=== PATIENT | male | born 1950 | race Caucasian/White ===

== ENCOUNTER 2018-02-26 13:14 | Emergency (ER) | payer MEDICARE, BC ==
[~2018-02-26] VITALS: Ht 188 cm; Wt 106.6 kg
[~2018-02-26 13:14] MED LIST: ALBU2.5V38 IH; ATOR10TA PO; BRIM5DRO3 EACHEYE; BRIN10DR EACHEYE; DEXL60CA3 PO; IBUP-1957 PO; LISI10TA5 PO; METH25TA5 PO; METO-295 PO; MONT10TA22 PO; TEST200V3 IM; THYR120T2 PO; TRAM50TA2 PO; TRAV5DRO EACHEYE
[2018-02-26] MEDS ORDERED: ONDANSETRON HCL/PF 4 MG/2 ML VIAL ONE ×2 (13:26→13:29)
[2018-02-26] MEDS ORDERED: HYDROMORPHONE 1 MG/1 ML DISP.SYRIN ONE ×2 (13:27→13:29)
[2018-02-26] MEDS ORDERED: ONDANSETRON HCL/PF 4 MG/2 ML VIAL IVP ONE (13:30)
[2018-02-26] MEDS ORDERED: HYDROMORPHONE INJ 2 MG/ML DISP.SYRIN IV ONE (13:30)
[2018-02-26 13:43] LABS: BASOPHILS % (AUTO) 0.2 % (0.0-2.0); HEMATOCRIT 52 % (39-51); HEMOGLOBIN 17.7 g/dL (13.5-17.5); LYMPHOCYTES # (AUTO) 1.2 /CMM (0.8-4.8); LYMPHOCYTES % (AUTO) 13.1 % (20.0-44.0); MEAN CORPUSCULAR HGB CONC 34 g/dl (31.0-36.0); MEAN CORPUSCULAR VOLUME 92 fL (80-96); MONOCYTES # (AUTO) 0.8 /CMM (0.1-1.30); MONOCYTES % (AUTO) 8.5 % (2.0-12.0); NEUTROPHILS # (AUTO) 7.3 /CMM (1.8-8.9); NEUTROPHILS % (AUTO) 78.2 % (43.0-81.0); RED BLOOD CELL COUNT(AUTO) 5.63 MIL/uL (4.5-6.0); WHITE BLOOD COUNT (AUTO) 9.3 K/uL (4.3-11.0)
--- NOTE | 2018-02-26 14:00 | NUR ---
R SIDE PAIN "FEELS LIKE MY LUNG IS COLLAPSING", SOB, ORTHOPNEIC. PT BED 6, AOX4, VSS. SKIN WARM, DRY, INTACT. C/O SHARP PAIN IN "RIGHT LUNG"ON INSPIRATION, 01/06. PT STATED RECENT PACEMAKER INSERTION 2 WEEKS AGO. SEEN BY DR MCCLENDON. FAMILY MEMBER AT BEDSIDE. WAITING FOR ORDERS. WILL CONT TO MONITOR.
[2018-02-26 14:01] LABS: CARBON DIOXIDE 19 mmol/L (21-32); CHLORIDE 101 mmol/L (98-107); CREATININE 1.2 mg/dL (0.6-1.3); GLUCOSE 111 mg/dL (74-106); POTASSIUM 4.5 mmol/L (3.5-5.1); SODIUM SERUM 134 mmol/L (136-145); UREA NITROGEN, BLOOD 31 mg/dL (7-18)
[2018-02-26] MEDS ORDERED: CYAN-6 IM (14:15)
[2018-02-26] MEDS ORDERED: ALBU18HF2 IH (14:15)
[2018-02-26 14:23] LABS: ALANINE AMINOTRANSFERASE 26 U/L (12-78); ALBUMIN 3.4 g/dL (3.4-5.0); ALKALINE PHOSPHATASE 76 U/L (46-116); ASPARTATE AMINOTRANSFERASE 17 U/L (15-37); B-TYPE NATRIURETIC PEPTIDE 73 PG/ML (0-125); BILIRUBIN,DIRECT 0.1 mg/dL (0.0-0.2); BILIRUBIN,TOTAL 0.6 mg/dL (0.2-1.0); TOTAL PROTEIN, SERUM 7.6 g/dL (6.4-8.2)
[2018-02-26 14:53] LABS: LYMPHOCYTES % (MANUAL) 11 % (16-48); MONOCYTES % (MANUAL) 8 % (0-11.0); NEUTROPHILS % (MANUAL) 81 (42-76)
[2018-02-26] MEDS ORDERED: IOHEXOL-300 100 ML VIAL IV ONE (14:55)
[2018-02-26] MEDS ORDERED: CT SWABBABLE VALVE TRANS SET 1 EA INFUS.SET MC ONE (14:55)
[2018-02-26] MEDS ORDERED: IV NS 0.9% 250 ML IV ONE (14:56)
--- NOTE | 2018-02-26 14:57 | NUR ---
PT LEFT FOR CT BY WHEELCHAIR.
[2018-02-26] MEDS ORDERED: IPRATROPIUM NEB FS 0.5 MG/2.5 ML AMPUL.NEB NEB ONE (15:00)
[2018-02-26] MEDS ORDERED: ALBUTEROL FS 2.5 MG/3 ML VIAL.NEB NEB ONE (15:00)
[2018-02-26] MEDS ORDERED: HYDROMORPHONE INJ 2 MG/ML DISP.SYRIN ONE (15:08)
--- NOTE | 2018-02-26 15:09 | NUR ---
PT BROUGHT BACK FROM CT DUE TO EXCESSIVE PAIN. PT TO RECEIVE PAIN MED AND RETURN TO CT.
[2018-02-26 15:12] LABS: D-DIMER 3.08 mg/L(FEU (0.17-0.50)
[2018-02-26] MEDS: HYDROMORPHONE INJ 2 MG/ML DISP.SYRIN IV ONE (15:13)
[2018-02-26] MEDS ORDERED: ALBUTEROL FS 2.5 MG/3 ML VIAL.NEB ONE (15:18)
[2018-02-26] MEDS ORDERED: IPRATROPIUM NEB FS 0.5 MG/2.5 ML AMPUL.NEB ONE (15:19)
--- NOTE | 2018-02-26 15:56 | NUR ---
BREATHING TX COMPLETE. PLACED BACK ON 2L O2, DUE TO O2 SAT OF 91%. STATES PAIN LEVEL HAS DECREASED TO 7/10.
--- NOTE | 2018-02-26 16:11 | NUR ---
PT TAKEN TO CT ON O2 BY WC
[2018-02-26] MEDS ORDERED: LEVOFLOXACIN (500MG) 500 MG TABLET ONE (17:26)
[2018-02-26] MEDS ORDERED: LEVOFLOXACIN (500MG) 500 MG TABLET PO ONE (17:30)
[2018-02-26 17:47] VITALS: BP 119/65
== END 2018-02-26 17:48 | disposition home or self-care (01) ==
LOC: ER 13:16
DX: J18.9 Pneumonia, unspecified organism (principal); I10 Essential (primary) hypertension; E78.5 Hyperlipidemia, unspecified; K21.9 Gastro-esophageal reflux disease without esophagitis; I45.10 Unspecified right bundle-branch block; Z95.0 Presence of cardiac pacemaker; Z88.5 Allergy status to narcotic agent; Z88.6 Allergy status to analgesic agent; Z88.8 Allergy status to other drugs, medicaments and biological substances
CPT/HCPCS: 36415; 71045-TC; 71260-TC; 80048-TC; 80076-TC; 83880; 84484-TC; 85025-TC; 85378-TC; 85730-TC; A4606; J1170; J2405; J7050; Q9967; Z7610

== ENCOUNTER 2020-09-16 14:50 | Emergency (ER) | payer BC, MEDICARE ==
[~2020-09-16] VITALS: Ht 188 cm; Wt 96.2 kg
[~2020-09-16 14:50] MED LIST changes: +ALBU18HF2 IH; +CYAN-6 IM; +LISI10TA29 PO; -LISI10TA5 PO
[2020-09-16 15:38] LABS: BASOPHILS % (AUTO) 0.4 % (0.0-2.0); EOSINOPHILS % (AUTO) 5.9 % (0.0-6.0); HEMATOCRIT 46 % (39-51); HEMOGLOBIN 15.1 g/dL (13.5-17.5); LYMPHOCYTES # (AUTO) 1.3 /CMM (0.8-4.8); LYMPHOCYTES % (AUTO) 14.4 % (20.0-44.0); MEAN CORPUSCULAR HGB CONC 33 g/dl (31.0-36.0); MEAN CORPUSCULAR VOLUME 96 fL (80-96); MONOCYTES # (AUTO) 0.7 /CMM (0.1-1.30); MONOCYTES % (AUTO) 8.5 % (2.0-12.0); NEUTROPHILS # (AUTO) 6.2 /CMM (1.8-8.9); NEUTROPHILS % (AUTO) 70.8 % (43.0-81.0); PLATELET COUNT (AUTO) 179 /CMM (150-450); RED BLOOD CELL COUNT(AUTO) 4.78 MIL/uL (4.5-6.0); WHITE BLOOD COUNT (AUTO) 8.8 K/uL (4.3-11.0)
--- NOTE | 2020-09-16 15:38 | NUR ---
Patient to room 08 patient alert and orreinted noted able to speak full sentenses ,talaktive hios @ bedside hooked in the monitor ,gown ,saline lock ,hooked in the monitor .
[2020-09-16 15:55] LABS: CARBON DIOXIDE 24 mmol/L (21-32); CHLORIDE 106 mmol/L (98-107); CREATININE 1.5 mg/dL (0.6-1.3); GLUCOSE 102 mg/dL (74-106); SODIUM SERUM 139 mmol/L (136-145); UREA NITROGEN, BLOOD 17 mg/dL (7-18)
[2020-09-16 16:00] LABS: ALANINE AMINOTRANSFERASE 19 U/L (12-78); ALBUMIN 3.4 g/dL (3.4-5.0); ALKALINE PHOSPHATASE 70 U/L (46-116); ASPARTATE AMINOTRANSFERASE 26 U/L (15-37); BILIRUBIN,DIRECT 0.1 mg/dL (0.0-0.2); BILIRUBIN,TOTAL 0.3 mg/dL (0.2-1.0); TOTAL PROTEIN, SERUM 6.6 g/dL (6.4-8.2)
[2020-09-16] MEDS ORDERED: methylPREDNISolone SOD SUCC 125 MG/2ML VIAL IV ONE (16:00)
[2020-09-16] MEDS ORDERED: ALBUTEROL FS 2.5 MG/3 ML VIAL.NEB NEB ONE (16:00)
[2020-09-16] MEDS ORDERED: IPRATROPIUM NEB FS 0.5 MG/2.5 ML AMPUL.NEB NEB ONE (16:00)
--- NOTE | 2020-09-16 16:02 | NUR ---
Called Rt for Breathing treatment .
[2020-09-16] MEDS ORDERED: IPRATROPIUM NEB FS 0.5 MG/2.5 ML AMPUL.NEB ONE (16:07)
[2020-09-16] MEDS ORDERED: ALBUTEROL FS 2.5 MG/3 ML VIAL.NEB ONE (16:07)
[2020-09-16] MEDS ORDERED: Magnesium 1GM/D5W 100ML PREMIX 200 ML IV ONE (16:30)
[2020-09-16] MEDS ORDERED: Magnesium 1GM/D5W 100ML PREMIX 100 ML IV ONE (16:31)
[2020-09-16] MEDS ORDERED: TRAZ-252 PO (16:37)
[2020-09-16] MEDS ORDERED: DORZ10DR10 EACHEYE (16:37)
--- NOTE | 2020-09-16 17:29 | NUR ---
Signed AMA form ,removed saline lock LAC cath tip intact no edema no pain .
--- NOTE | 2020-09-16 17:30 | NUR ---
He states he will come to see ED tomorrow for follow up .
--- NOTE | 2020-09-16 17:30 | NUR ---
Patient refused stay and wait for blood result and xray stated will come tomorrow .Noted patient awake alert able to ambulate and stand ,able to speak full sentences patient sating 97 RA .
[2020-09-16 17:45] VITALS: BP 108/61
== END 2020-09-16 17:45 | disposition left against medical advice (07) ==
LOC: ER 14:58
DX: J45.901 Unspecified asthma with (acute) exacerbation (principal); I10 Essential (primary) hypertension; E78.5 Hyperlipidemia, unspecified; K21.9 Gastro-esophageal reflux disease without esophagitis; Z95.0 Presence of cardiac pacemaker; Z88.6 Allergy status to analgesic agent; Z88.8 Allergy status to other drugs, medicaments and biological substances; Z79.899 Other long term (current) drug therapy
CPT/HCPCS: 36415; 71045; 80048; 80076; 83880; 84484; 85025; 93005 ×3; 94644; 96365; 99285; J3475; J7030